=== PATIENT | male | born 1960 | race Caucasian/White ===

== ENCOUNTER 2021-07-25 16:06 | Emergency (ER) | payer OTHER ==
[~2021-07-25] VITALS: Ht 177.8 cm; Wt 89.6 kg
[2021-07-25] MEDS ORDERED: OXYMETAZOLINE 0.05% NASAL SPRAY 30ML BOTTLE. NS ONE (16:30)
--- NOTE | 2021-07-25 16:36 | PHYS DOC ---
General Adult EDM: Chief Complaint: NOSEBLEED HPI: HPI: Patient is a 61-year-old male who presents to the emergency department by me from his primary care provider for epistaxis. Patient reports that he has had intermittent nosebleeds for the last 5 days. Patient has a history of allergic rhinitis and takes Flonase. He states that he has food intolerances such as lactose and gluten intolerances and sometimes when he eats that it causes him to have severe vomiting and that will occasionally initiate a nosebleed. Denies blood thinner use, lightheadedness. Upon ER arrival, patient's nose is not actively bleeding. Patient's vital signs are stable. (DEL TURK APRN) Review of Systems: Review of Systems: HENT: See HPI Neurologic: See HPI (DEL TURK APRN) Current Medications: Current Meds: Current Medications Medications (Trade) Dose Ordered Sig/Adeola Start Time Stop Time Status Last Admin Dose Admin Oxymetazoline HCl (Afrin) 2 spray 1X ONCE 07/25/21 16:30 07/25/21 16:31 UNV (DEL TURK APRN) Allergies: Allergies: Allergies Coded Allergies Type Severity Reaction Last Updated Verified succinylcholine Allergy Severe could not recover from or wake up 07/25/21 Yes (DEL TURK APRN) Physical Exam: PE: Constitutional: Well developed, well nourished, no acute distress, non-toxic appearance. [] HENT: Normocephalic, atraumatic, bilateral external ears normal, oropharynx moist, no oral exudates, nose normal-no active bleeding. [] Eyes: PERRL, EOMI, conjunctiva normal, no discharge. [] Neck: Normal range of motion, no stridor Cardiovascular:Heart rate regular rhythm, no murmur [] Lungs & Thorax: Bilateral breath sounds clear to auscultation [] Abdomen: Bowel sounds normal, soft, no tenderness, no masses, no pulsatile masses. [] Skin: Warm, dry, no erythema, no rash. [] Back: normal ROM Extremities: No tenderness, no cyanosis, no clubbing, ROM intact, no edema. [] Neurologic: Alert and oriented X 3, normal motor function, normal sensory function, no focal deficits noted. [] Psychologic: Affect normal, judgement normal, mood normal. [] (DEL TURK APRN) EKG: EKG: [] (DEL TURK APRN) Radiology/Procedures: Radiology/Procedures: [] (DEL TURK APRN) Heart Score: C/O Chest Pain: N/A Risk Factors: Risk Factors: DM, Current or recent (<one month) smoker, HTN, HLP, family history of CAD, obesity. Risk Scores: Score 0 - 3: 2.5% MACE over next 6 weeks - Discharge Home Score 4 - 6: 20.3% MACE over next 6 weeks - Admit for Clinical Observation Score 7 - 10: 72.7% MACE over next 6 weeks - Early Invasive Strategies (DEL TURK APRN) Course & Med Decision Making: Course & Med Decision Making Pertinent Labs and Imaging studies reviewed. (See chart for details) [] Patient presents to the emergency department for epistasis. Patient states that he was sent here from his primary care provider for ENT. Patient was educated that we do not have ENT in the ER but we could refer him to an ENT physician. Patient's nose was not actively bleeding upon ER arrival. However shortly after ER arrival his nose began to bleed. Patient advised to blow his nose, 2 sprays of Afrin in each nostril and a nose clamp was placed. Following this procedure, patient's bleeding has stopped. Patient discharged home with Afrin and educated on care if patient's nose does rebleed. I discussed with p atient all findings and diagnostic testing as well as the need to follow-up with PCP for further evaluation and treatment or return to the ER if any new or worsening symptoms. Strict return precautions were also discussed at length. Patient voiced understanding and agreement with the plan. Patient is hemodynamically stable at the time of disposition. (DEL TURK APRN) Dragon Disclaimer: Dragon Disclaimer: This electronic medical record was generated, in whole or in part, using a voice recognition dictation system. (DEL TURK APRN) Departure Departure: Impression: Primary Impression: Epistaxis Disposition: HOME / SELF CARE / HOMELESS Condition: GOOD Referrals: BROOKLYNN ORTIZ DO, MPH (PCP) Patient Instructions: Nosebleed Additional Instructions: You were seen in the emergency department today for nosebleed. The bleeding was stopped with Afrin and pressure. If your nose does rebleed at home please perform the same procedure that we did in the emergency department. This is blow your nose and put 2 sprays of Afrin in each nostril and hold pressure or use the nose clamp for 15 minutes. You can repeat this 3 times and if your bl eeding does not stop after the first time then you should go to an emergency department with an ENT coverage. You should also go to the ER if you develop severe headache, lightheadedness, syncope. Otherwise if your bleeding does stop and does not rebleed you can follow-up with an ENT outpatient. You can contact Dr. Knight at . Attending Signature Attending Signature I have reviewed the PA/NAPPER TENDER's note and plan of care. I was available for consultation as needed during the patient's visit in the emergency department. I agree with the clinical impression, plan, and disposition. (CHRIS ALANIS DO) DEL TURK APRN Jul 25, 2021 16:36 CHRIS ALANIS DO Jul 25, 2021 23:36
[2021-07-25 17:45] VITALS: BP 140/89
== END 2021-07-25 18:02 | disposition home or self-care (01) ==
LOC: ER 16:06
DX: R04.0 Epistaxis (principal); Z88.8 Allergy status to other drugs, medicaments and biological substances
CPT/HCPCS: 99282

== ENCOUNTER 2021-09-03 10:17 | Emergency (ER) | payer OTHER ==
[~2021-09-03] VITALS: Ht 177.8 cm; Wt 88.7 kg
--- NOTE | 2021-09-03 10:26 | PHYS DOC ---
Past History Past Medical History: High Cholesterol, Hypertension Past Surgical History: Other Additional Past Surgical Histo: hernia repair, deviated septum Smoking: Non-smoker Alcohol Use: Occasionally Drug Use: None Adult General Chief Complaint Chief Complaint: COUGH HPI HPI Patient is a 61-year-old male presenting by way of urgent care for cough and shortness of breath. Onset was yesterday evening, patient reports he was finishing a bourbon drink and drink approximately 1 ounce shot to finish the glass and felt it go down the wrong tube. States since then he had raspy and expiratory crackles and left-sided chest pain. Symptoms persisted to this morning which prompted him to go to local urgent care. On evaluation, patient found to have an unremarkable physical examination but O2 saturations were in the low 90s and desaturated into the upper 80s with ambulation. PA spoke with me about need for more advanced testing performed in ER setting which I agreed with prompting patient to present to our ER. He was able to ambulate down to [facility] facility without issues. Reports ongoing left-sided chest pain and shortness of breath. Has history of high blood pressure and high cholesterol only, no prior CAD or history of provocative cardiac testing. He has good outpatient follow-up with primary care physician and has been compliant with annual well visit exams. Denies any tobacco abuse, admits it occasional alcohol use, no illicit drug abuse. Review of Systems Review of Systems Fourteen body systems of review of systems have been reviewed. See HPI for pertinent positives and negative responses, other jacobs all other systems are negative, non-pertinent or non-contributory Allergies Allergies Allergies Coded Allergies Type Severity Reaction Last Updated Verified succinylcholine Allergy Severe could not recover from or wake up 07/25/21 Yes Physical Exam Physical Exam Constitutional: Well developed, well nourished, no acute distress, non-toxic appearance. HENT: Normocephalic, atraumatic, bilateral external ears normal, oropharynx moist, no oral exudates, nose normal. Eyes: PERRLA, EOMI, conjunctiva normal, no discharge. Neck: Normal range of motion, no tenderness, supple, no stridor. Cardiovascular: Heart rate regular, sinus rhythm, no murmurs rubs or gallops Lungs & Thorax: Bilateral breath sounds clear to auscultation Abdomen: Bowel sounds normal, soft, no tenderness, no masses, no pulsatile masses. Nonsurgical abdomen, no peritoneal signs Skin: Warm, dry, no erythema, no rash. Back: No tenderness, no CVA tenderness. Extremities: No tenderness, no cyanosis, no clubbing, ROM intact, no edema. Neurologic: Alert and oriented X 3, grossly normal motor & sensory function, no focal deficits noted. Psychologic: Affect normal, judgement normal, mood normal. Current Patient Data Vital Signs Vital Signs Date Time Temp Pulse Resp B/P (MAP) Pulse Ox O2 Delivery O2 Flow Rate FiO2 09/03/21 10:24 98.2 89 16 152/85 (107) 93 Room Air Vital Signs Date Time Temp Pulse Resp B/P (MAP) Pulse Ox O2 Delivery O2 Flow Rate FiO2 09/03/21 10:24 98.2 89 16 152/85 (107) 93 Room Air Lab Results Laboratory Tests Test 09/03/21 10:55 White Blood Count 7.8 x10^3/uL Red Blood Count 4.38 x10^6/uL Hemoglobin 15.5 g/dL Hematocrit 45.9 % Mean Corpuscular Volume 105 fL Mean Corpuscular Hemoglobin 36 pg Mean Corpuscular Hemoglobin Concent 34 g/dL Red Cell Distribution Width 13.1 % Platelet Count 115 x10^3/uL Neutrophils (%) (Auto) 78 % Lymphocytes (%) (Auto) 14 % Monocytes (%) (Auto) 7 % Eosinophils (%) (Auto) 0 % Basophils (%) (Auto) 1 % Neutrophils # (Auto) 6.1 x10^3uL Lymphocytes # (Auto) 1.1 x10^3/uL Monocytes # (Auto) 0.5 x10^3/uL Eosinophils # (Auto) 0.0 x10^3/uL Basophils # (Auto) 0.1 x10^3/uL Platelet Estimate Decreased Platelet Clumps, EDTA Present Sodium Level 142 mmol/L Potassium Level 3.7 mmol/L Chloride Level 105 mmol/L Carbon Dioxide Level 23 mmol/L Anion Gap 14 Blood Urea Nitrogen 9 mg/dL Creatinine 0.8 mg/dL Estimated GFR (Cockcroft-Gault) 98.3 Glucose Level 117 mg/dL Calcium Level 8.3 mg/dL VS-Oxc-T-Type Natriuretic Peptide 92 pg/mL EKG EKG EKG ordered and interpreted by myself at 1101 hrs. as sinus rhythm at 79 bpm, unremarkable intervals, no axis deviation, no obvious ischemic findings, no STEMI Radiology/Procedures Radiology/Procedures XR CHEST 2V History: Reason: shob, cough / Spl. Instructions: / History: Comparison: None. Findings: Mild linear left basilar linear atelectasis or scarring. Prior granulomatous disease within the chest. No consolidation or pleural effusion. Normal heart size. No pneumothorax. Impression: 1. No acute cardiopulmonary process. Electronically signed by: Juan Cleveland DO (09/03/2021 12:09 PM) [facility] Heart Score C/O Chest Pain: Yes HEART Score for Chest Pain: HEART Score for Chest Pain Response (Comments) Value History Slighlty/Non-Suspicious 0 ECG Normal 0 Age >45 - < 65 1 Risk Factors 1 or 2 Risk Factors 1 Troponin < Normal Limit 0 Total 2 Risk Factors: Risk Factors: DM, Current or recent (<one month) smoker, HTN, HLP, family history of CAD, obesity. Risk Scores: Risk Factors: DM, Current or recent (<one month) smoker, HTN, HLP, family history of CAD, obesity. Course & Med Decision Making Course & Med Decision Making Airway patent, breathing unlabored, IV access and vitals obtained that were grossly nonconcerning HPI physical exam and comprehensive ER work-up obtained and nonconcerning for any emergent or surgical issues I disclosed potential need for CT but this was deferred. Patient has risk for aspiration pneumonia which I discussed but at present, no indication for antibiotics. Discussed need to monitor symptoms and if symptoms persist past 48 hours discussed need for this with primary care provider I also disclosed potential but low risk for pulmonary embolism. Given mechanism of injury/insult this is extremely low which is why CT angio deferred. No D- dimer is Wells score 0 Ultimately, patient to have new prescription for steroids with supportive care practices for pneumonitis advised. Strict return precautions were discussed with good understanding by patient, all questions and concerns addressed prior to ER departure Dragon Disclaimer Dragon Disclaimer This electronic medical record was generated, in whole or in part, using a voice recognition dictation system. Departure Departure: Impression: Primary Impression: Cough Additional Impression: Pneumonitis Disposition: HOME / SELF CARE / HOMELESS Condition: STABLE Referrals: BROOKLYNN ORTIZ DO, MPH (PCP) Additional Instructions: As discussed prior to ER departure, your vital signs, physical exam and compr ehensive ER work-up were nonconcerning for any emergent or surgical issues. You had evident crackles during auscultation of lungs but chest x-ray was nonconcerning for any concerning findings such as acute infection or pneumothorax. I discussed most likely diagnosis of pneumonitis given ingestion of alcohol " going down the wrong tube". Short-term steroid burst should improve your symptoms. As disclosed, if symptoms persist after 48 hours without any improvement, close outpatient follow-up is advised for repeat imaging and consideration for antibiotics as there is concern for potential aspiration pneumonia. Your oxygen saturation was found to be low while visiting urgent care but during extensive evaluation while in ER setting, there were no concerning findings or need for oxygen. With that said, you should purchase a finger pulse oximeter and check your oxygen saturations frequently especially during times at which you are short of breath. Please contact your primary care provider immediately when they open on Saturday to review ER visit and need for close outpatient follow-up within upcoming 72 hours especially if symptoms do n ot persist. As always, if any concerning signs or symptoms present prior to outpatient follow-up please do not hesitate to come back for repeat evaluation. Is a pleasure to take care of you and I wish you the best going forward Scripts Prednisone (PREDNISONE) 20 Mg Tablet 40 MG PO DAILY for pneumonitis for 3 Days, #6 TAB Prov: YAMILKA BOLIVAR DO 09/03/21 Problem Qualifiers YAMILKA BOLIVAR DO Sep 03, 2021 10:26
--- NOTE | 2021-09-03 11:05 | EKG ---
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
[2021-09-03 11:23] LABS: BASO # 0.1 x10^3/uL (0.0-0.2); BASO % 1 % (0-3); EOS % 0 % (0-3); HEMATOCRIT 45.9 % (39.0-53.0); HEMOGLOBIN 15.5 g/dL (13.0-17.5); LYMPH # 1.1 x10^3/uL (1.0-4.8); LYMPH % 14 % (24-48); MEAN CORPUSCULAR HEMOGLOBIN 36 pg (25-35); MEAN CORPUSCULAR HGB CONC 34 g/dL (31-37); MEAN CORPUSCULAR VOLUME 105 fL (79-100); MONO # 0.5 x10^3/uL (0.0-1.1); MONO % 7 % (0-9); NEUT # 6.1 x10^3uL (1.8-7.7); NEUT % 78 % (31-73); PLATELET COUNT 115 x10^3/uL (140-400); RED BLOOD COUNT 4.38 x10^6/uL (4.30-5.70); RED CELL DISTRIBUTION WIDTH 13.1 % (11.5-14.5); WHITE BLOOD COUNT 7.8 x10^3/uL (4.0-11.0)
[2021-09-03 11:32] LABS: CALCIUM 8.3 mg/dL (8.5-10.1); CREATININE 0.8 mg/dL (0.7-1.3); GFR 98.3; POTASSIUM 3.7 mmol/L (3.5-5.1)
[2021-09-03 12:00] LABS: PLATELET CLUMP PRESENT; PLT ESTIMATE DECREASED (ADEQUATE)
--- NOTE | 2021-09-03 12:11 | RAD ---
XR CHEST 2V History: Reason: shob, cough / Spl. Instructions: / History: Comparison: None. Findings: Mild linear left basilar linear atelectasis or scarring. Prior granulomatous disease within the chest . No consolidation or pleural effusion. Normal heart size. No pneumothorax. Impression: 1. No acute cardiopulmonary process. Electronically signed by: Juan Cleveland DO (09/03/2021 12:09 PM) [facility]
[2021-09-03 12:24] VITALS: BP 133/81
[2021-09-03] MEDS ORDERED: PRED20TA PO (12:29)
[2021-09-03] MEDS ORDERED: predniSONE 10 MG TABLET. PO ONE (12:30)
== END 2021-09-03 12:40 | disposition home or self-care (01) ==
LOC: ER 10:17
DX: J18.9 Pneumonia, unspecified organism (principal); E78.00 Pure hypercholesterolemia, unspecified; I10 Essential (primary) hypertension; Z88.8 Allergy status to other drugs, medicaments and biological substances
CPT/HCPCS: 36415; 71046; 80048; 83880; 85025; 93005; 99285; J7512